=== PATIENT | male | born 1965 ===

== ENCOUNTER 2025-02-25 06:00 | Observation (INO) ==
--- NOTE | 2025-02-21 11:04 | Anesthesiology Consultation ---
Date of Service February 21, 2025 Assessment & Plan (1) Encounter for pre-operative examination: - check CBC with diff and CMP STAT am DOS, fluid orders to assigned anesthesiologist review of CMP DOS. - 6 beers daily. - pulmonology office visit 01/21/25 [place]: "...COPD (chronic obstructive pulmonary disease) with emphysema: Very severe COPD, Gold stage E with multiple exacerbations. 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 If this is present then he may benefit from home NIV...Nocturnal hypoxemia due to emphysema...currently on a device (Airvo 3) which is essentially a high flow cannula that he uses at night. Requires 2 L of oxygen...significant debility and dyspnea on exertion related to his severe lung disease...multiple subcentimeter pulmonary nodules. They have been followed with yearly CT scans...high risk for malignancy...Tracheal nodule...There is what appeared to be a mucous plug within the trachea above the stephen just below the aortic arch that has been present since June 2023 however appears to be growing in size. Do not see other mucous plugging throughout the airways. 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 Chart Review Chart Review: Acceptable Risk for Surgery and Patient NOT seen in Pre Admission Testing History Surgery Operation Date: 02/25/25 07:30 Proposed Procedures p Bronchoscopy - Tracey Chand MD Height/Weight Height: 5 ft 10 in Weight: 84.368 kg Allergies Allergy/AdvReac Type Severity Reaction Status Date / Time ciprofloxacin [From Cipro] Allergy Mild Back Pain Verified 02/17/25 12:34 levofloxacin Allergy Mild Back Pain Verified 02/17/25 12:34 metronidazole [From Flagyl] Allergy Mild Back Pain Verified 02/17/25 12:34 Medications Home Medications Medication Instructions Recorded Confirmed Last Taken albuterol sulfate 90 mcg/actuation 2 inh inhalation Q6H PRN Wheezing 01/19/25 02/17/25 Unknown breath activated powder inhaler cholecalciferol (vitamin D3) 125 125 mcg PO DAILY 01/19/25 02/17/25 Unknown mcg (5,000 unit) capsule famotidine 20 mg tablet 20 mg PO BID 01/19/25 02/17/25 Unknown lisinopril 20 mg tablet 20 mg PO PM 01/19/25 02/17/25 Unknown magnesium chloride 64 mg 64 mg PO PM 01/19/25 02/17/25 Unknown (magnesium chloride) tablet,delayed release pantoprazole 40 mg tablet,delayed 20 mg PO QAM 01/19/25 02/17/25 Unknown release azithromycin 500 mg tablet See Rx Instructions PO .COMPLEX #3 02/04/25 02/17/25 Unknown tabs aspirin 81 mg tablet,delayed 81 mg PO PM 02/17/25 02/17/25 Unknown release roflumilast 250 mcg tablet 250 mcg PO HS 02/17/25 02/17/25 Unknown (Daliresp) zinc acetate 50 mg (zinc) capsule 50 mg PO PM 02/17/25 02/17/25 Unknown ipratropium 0.5 mg-albuterol 3 mg 3 ml inhalation QID #180 mL 02/21/25 Unknown (2.5 mg base)/3 mL nebulization soln umeclidinium 62.5 mcg-vilanterol 1 inh inhalation PM #60 ea 02/21/25 Unknown 25 mcg/actuation powdr for inhalation (Anoro Ellipta) Past Medical History Medical History (Updated 02/21/25 @ 11:00 by Gladis Farr PA-C) Arthritis Asthma Atrial fibrillation was prescribed meds, does not take any of them, had adverse reactions, was seeing [facility], asking for referral from pcp to see [place] cards next week > Carpal tunnel syndrome bilat COPD (chronic obstructive pulmonary disease) uses Aero 3 chest machine at HS that is used with the 02 UMANZOR (dyspnea on exertion) GERD (gastroesophageal reflux disease) History of COVID-2023 History of kidney stones HTN (hypertension) Multiple pulmonary nodules Nocturnal hypoxemia due to emphysema 2 LPM at HS Prediabetes no meds Tracheal nodule Past Surgical History Surgical History History of bowel resection for colon perf History of colonoscopy History of lithotripsy History of tonsillectomy History of tooth extraction Hx of hernia repair S/P correction of deviated nasal septum Social History Smoking Status: Former smoker Do You Dip or Chew Tobacco: No Smoking End Date: jan 2023 Hx Alcohol Use: Yes Alcohol type: beer alcohol intake frequency: 3 or more drinks per day Alcohol Intake Frequency Comment: 6 beers per day Hx Substance Use: No substance use type: does not use Testing Electrocardiogram Date: 01/21/25 NSR, rate 82 bpm Chest X-Ray Date: 01/21/25 Left lower lung small area of ill-defined opacity which may represent atelectasis or infection Echocardiogram Date: 10/09/23 EF 60% No obvious RWMA Technically difficult study Other Testing Thorax CT 11/01/24 No acute abnormality in the chest Stable bilateral pulmonary nodules Moderate emphysema Pronounced hepatic steatosis
[2025-02-25 06:21] LABS: Hematocrit (blood only) 41.1 % (42.0-52.0); Hemoglobin 14.1 g/dl (14.0-18.0); Immature Granulocytes # (auto) 0.02 K/uL (0.01-0.20); Immature Granulocytes % (auto) 0.4 %; Mean Corpuscular Hemoglobin 29.0 pg (25.0-34.0); Mean Corpuscular Volume 84.4 fL (80.0-100.0); Platelet Count 284 K/uL (130-400); RDW Standard Deviation 38.8 fL (36.4-46.3); Red Blood Count 4.87 M/uL (4.70-6.10); White Blood Count 5.37 K/ul (4.8-10.8)
[2025-02-25] MEDS: LACTATED RINGER'S 1,000 ML IV SCH (06:35)
[2025-02-25 06:44] LABS: Alanine Aminotransferase 51.0 U/L (7-52); Albumin Globulin Ratio 1.4 (0.9-2); Albumin Level 4.3 gm/dl (3.4-5.0); Alkaline Phosphatase 97.0 U/L (34-104); Anion Gap 11.0 (3-11); Bilirubin,Total 0.3 mg/dl (0.2-1.0); Blood Urea Nitrogen 6.0 mg/dl (6-23); Calcium 9.5 mg/dl (8.6-10.3); Carbon Dioxide 25.0 mmol/L (21-32); Chloride 99.0 mmol/L (98-107); Creatinine Clr Calc Pharmacy 119.0 ml/min; Globulin 3.1 gm/dl (2.5-4.0); Glucose 110.0 mg/dl (70-99(Fasting)); Potassium 4.1 mmol/L (3.5-5.1); Sodium 135.0 mmol/L (136-145); Total Protein 7.4 gm/dl (6.0-8.3)
[2025-02-25] MEDS ORDERED: ATROPINE SULFATE 0.1 MG/ML 10ML SYR IV PRN ×2 (06:57)
[2025-02-25] MEDS ORDERED: ONDANSETRON INJ 2 MG/ML 2 ML VIAL IV PRN ×2 (06:57→10:41)
[2025-02-25] MEDS ORDERED: LIDOCAINE 2% 2 ML VIAL/AMP(20MG/ML) INFIL ONE (06:58)
[2025-02-25] MEDS ORDERED: PROPOFOL IV EMULSION 10 MG/ML 20 ML VIAL IV ONE (06:58)
[2025-02-25] MEDS ORDERED: MIDAZOLAM HCL 1 MG/ML 2ML VIAL ONE (06:58)
[2025-02-25] MEDS ORDERED: LARYING-O-JET KIT (LTA) ONE (06:58)
[2025-02-25] MEDS ORDERED: DexMEDEtomidine HCL IV 100 MCG/ML VIAL IV ONE (06:58)
[2025-02-25] MEDS ORDERED: ROCURONIUM BROMIDE 10 MG/ML 5 ML VIAL IV ONE (06:58)
[2025-02-25] MEDS ORDERED: DEXAMETHASONE SOD INJ 4 MG/ML VIAL ONE (06:58)
[2025-02-25] MEDS ORDERED: ONDANSETRON INJ 2 MG/ML 2 ML VIAL ONE (06:58)
[2025-02-25] MEDS: ALBUT/IPRATROP 3MG/0.5MG NEB 3 ML VIAL NEB STA ×2 (07:01→09:17)
[2025-02-25] MEDS ORDERED: ALBUTEROL HFA 8 GM INHALER INH ONE (07:06)
[2025-02-25] MEDS ORDERED: KETAMINE HCL 10MG/ML SYR ONE (07:06)
[2025-02-25] MEDS ORDERED: GLYCOPYRROLATE 0.2 MG/ML VIAL ONE (07:09)
--- NOTE | 2025-02-25 07:35 | History & Physical Report ---
Date of Service February 25, 2025 Assessment & Plan (1) Tracheal nodule: Plan: Will precede with bronchoscopy with biopsies of the trachea lesion with forceps. Will also do BAL and airway exam. History of Present Illness Primary Care Provider: Leny Fernandez CNP Patient si a 59 y/o M, history of tobacco use and COPD Gold E with emphysema and pulmonary nodulues. Here today for abnormal CT imgaing with lesion in the trachea above the stephen. CT imaging that is available dating back to June 2023. There is what appeared to be a mucous plug within the trachea above the stephen just below the aortic arch that has been present since June 2023 however appears to be growing in size. Do not see other mucous plugging throughout the airways. This is unlikely to be a mucous plug as it is in the same location since June 2023 and appears to be growing in size. Patient is high risk for malignancy given his tobacco use history, this could represent a squamous cell. I discussed possible flexible bronchoscopy to evaluate the airways and obtain biopsies if a lesion was present. The patient is agreeable to bronchoscopy with biopsies and BAL. Feeling well today. His friend Sallie is with him today. He is planning to follow up in clinic at end of February. Allergies Allergy/AdvReac Type Severity Reaction Status Date / Time ciprofloxacin [From Cipro] Allergy Mild Back Pain Verified 02/25/25 06:12 levofloxacin Allergy Mild Back Pain Verified 02/25/25 06:12 metronidazole [From Flagyl] Allergy Mild Back Pain Verified 02/25/25 06:12 Home Medications Medication Instructions Recorded Confirmed Type albuterol sulfate 90 mcg/actuation 2 inh inhalation Q6H PRN Wheezing 01/19/25 02/25/25 History breath activated powder inhaler cholecalciferol (vitamin D3) 125 125 mcg PO DAILY 01/19/25 02/25/25 History mcg (5,000 unit) capsule famotidine 20 mg tablet 20 mg PO BID 01/19/25 02/25/25 History lisinopril 20 mg tablet 20 mg PO PM 01/19/25 02/25/25 History magnesium chloride 64 mg 64 mg PO PM 01/19/25 02/25/25 History (magnesium chloride) tablet,delayed release pantoprazole 40 mg tablet,delayed 20 mg PO QAM 01/19/25 02/25/25 History release azithromycin 500 mg tablet See Rx Instructions PO .COMPLEX #3 02/04/25 02/25/25 Rx tabs aspirin 81 mg tablet,delayed 81 mg PO PM 02/17/25 02/25/25 History release roflumilast 250 mcg tablet 250 mcg PO HS 02/17/25 02/25/25 History (Daliresp) zinc acetate 50 mg (zinc) capsule 50 mg PO PM 02/17/25 02/25/25 History ipratropium 0.5 mg-albuterol 3 mg 3 ml inhalation QID #180 mL 02/21/25 02/25/25 Rx (2.5 mg base)/3 mL nebulization soln umeclidinium 62.5 mcg-vilanterol 1 inh inhalation PM #60 ea 02/21/25 02/25/25 Rx 25 mcg/actuation powdr for inhalation (Anoro Ellipta) Past Med/Surg History Problem List Encounter for pre-operative examination Multiple pulmonary nodules Nocturnal hypoxemia due to emphysema UMANZOR (dyspnea on exertion) 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 Medical History Arthritis Asthma Atrial fibrillation was prescribed meds, does not take any of them, had adverse reactions, was seeing [facility], asking for referral from pcp to see [place] cards next week > Carpal tunnel syndrome bilat COPD (chronic obstructive pulmonary disease) uses Aero 3 chest machine at HS that is used with the 02 UMANZOR (dyspnea on exertion) GERD (gastroesophageal reflux disease) History of COVID-2023 History of kidney stones HTN (hypertension) Multiple pulmonary nodules Nocturnal hypoxemia due to emphysema 2 LPM at HS Prediabetes no meds Tracheal nodule Surgical History History of bowel resection for colon perf History of colonoscopy History of lithotripsy History of tonsillectomy History of tooth extraction Hx of hernia repair S/P correction of deviated nasal septum Social History Smoking Status: Former smoker Tobacco Type: Cigarettes Age Started Using Tobacco: 23; Age Quit Using Tobacco: 57; packs per day: 1.5; Smoking End Date: jan 2023; Second Hand Exposure: No; Do You Dip or Chew Tobacco: No; Tobacco Cessation Education Requested by Patient: No Hx Alcohol Use: Yes Alcohol type: beer Hx Substance Use: No Preferred Language: Sammarinese Communication Ability: Effective Internet Consultant Required: No Beliefs That Will Affect Care: None Current Living Situation: Family Other Information That Helps Us Care for You: No Feels Safe at Home: Yes Safety Concerns: Feels Safe At This Time Assistive Devices: Denture - Upper, Denture - Lower, Glasses and Oxygen - at Night Review of Systems Chronic cough UMANZOR NO hemoptysis Physical Exam Physical Exam: Awake and alert. On room air, non tachypneic Sinus rhythm No extremity swelling Results & Data Vital Signs (Past 12 Hours) Vital Signs Temp Pulse Resp BP Pulse Ox O2 Del Method 02/25/25 07:01 103 H 16 94 Room Air 02/25/25 06:20 Room Air 02/25/25 06:09 36.7 C 86 20 130/89 96 Room Air
[2025-02-25] MEDS ORDERED: PHENYLEPHRINE 100MCG/ML 5ML SYR ONE ×2 (07:57)
--- NOTE | 2025-02-25 08:23 | Procedure Note ---
Procedure Note: Bronchoscopy Procedure PREOPERATIVE DIAGNOSIS: Abnormal CT, possible endotracheal lesion lesion POSTOPERATIVE DIAGNOSIS: Chronic bronchitis, thick mucoid secretions. PROCEDURE PERFORMED: Flexible fiberoptic bronchoscopy with BAL COMPLICATIONS: None. INDICATION: Abnormal CT scan, questionable endotracheal lesion present for at least 18 months PROCEDURE: After obtaining an informed consent, the patient was brought to the operating room. ANESTHESIA: General anesthesia with anesthesiology present. There was normal vocal cord motion without masses or lesions. Additional topical anesthesia with 1% lidocaine was applied to the trachea and stephen. The trachea was examined thoroughly. There were white thick secretions that were suctioned clear. Trachea was abnormally wide. The posterior membrane in the middle third of the trachea tends to collapse with respirations. Mucosa was friable. I did not appreciate any endotracheal lesions or significant mucosal abnormalities warranting biopsies. The stephen was sharp. Hyperemic mucosa that was friable. No lesions within the airway. The bronchoscope was advanced into the left mainstem and advanced to examine the airways including the left upper lobe, lingula and left lower lobe. Airways were patent. There were white mucoid secretions present that were suctioned clear. Mucosa was friable. No endobronchial lesions. No and extrinsic impression. The bronchoscope was retracted back to the stephen and advanced into the right mainstem, the right upper lobe, right middle lobe and right lower lobe were examined. Mucosa was friable throughout the airways with oozing after even suctioning. There were no endobronchial lesions. Normal airway anatomy was appreciated. No extrinsic compression. The bronchoscope was wedged into the right middle lobe, BAL was performed and sent for microbiology. The bronchoscope was slowly retracted again examining the airways while exiting the trachea. Again no evidence of endotracheal lesions appreciated. No biopsies were performed. Bronchoscope was retracted and procedure was terminated. Estimated blood loss: Minimal Complications: None Recommendations: Follow-up micro. Continue with medical therapy for chronic bronchitis/COPD. Will follow-up in clinic. [facility] [place] Procedure Codes (Charges) Pulmonary/Thoracic Procedure 1: Pulmonary and Thoracic: 97135 Dx bronchoscopy/BAL
[2025-02-25] MEDS: ALBUT/IPRATROP 3MG/0.5MG NEB 3 ML VIAL ONE (09:16)
[2025-02-25] MEDS: KETOROLAC 30 MG/ML VIAL ONE (09:16)
[2025-02-25] MEDS: KETOROLAC TROMETHAMINE 15 MG/ML VIAL IV ONE (09:17)
--- NOTE | 2025-02-25 10:08 | Anesthesiology Progress Note ---
Date of Service February 25, 2025 Anesthesia Post Procedure Vital Signs Vital Signs: Temp Pulse Pulse Resp BP Pulse Ox O2 Del Method 02/25/25 09:50 99 H 18 118/64 90 Nasal Cannula 02/25/25 09:40 100 H 12 116/65 89 L Room Air 02/25/25 09:30 105 H 21 106/69 88 L Room Air 02/25/25 09:20 103 H 22 97/61 L 91 Oxymask 02/25/25 09:16 102 H 18 92 Oxymask 02/25/25 09:10 99 H 17 95/78 L 91 Oxymask 02/25/25 09:00 36.3 C L 101 H 22 102/55 L 89 L Oxymask 02/25/25 08:50 101 H 20 102/53 L 90 Oxymask 02/25/25 08:40 103 H 20 84/54 L 91 Oxymask 02/25/25 08:30 109 H 18 92/59 L 92 Oxymask 02/25/25 08:28 Mechanical Vent 02/25/25 08:23 36.1 C L 105 H 22 91/57 L 92 Oxymask 02/25/25 07:01 103 H 16 94 Room Air 02/25/25 06:20 Room Air 02/25/25 06:09 36.7 C 86 20 130/89 96 Room Air O2 Flow Rate 02/25/25 09:50 2 02/25/25 09:40 02/25/25 09:30 02/25/25 09:20 3 02/25/25 09:16 2 02/25/25 09:10 3 02/25/25 09:00 3 02/25/25 08:50 4 02/25/25 08:40 5 02/25/25 08:30 6 02/25/25 08:28 02/25/25 08:23 6 02/25/25 07:01 02/25/25 06:20 02/25/25 06:09 Pain Intensity Throat: Pain Intensity: 5 Transfer of Care Handoff Completed per policy Notes Mental Status: alert / awake / arousable Patient Amnestic to Procedure: Yes Nausea / Vomiting: adequately controlled Pain: adequately controlled Airway Patency, RR, SpO2: see Notes below BP & HR: stable & adequate Hydration State: stable & adequate Anesthetic Complications: no major complications apparent and Pt Satisfied with anesthetic care Notes: Attempted to wean oxygen however patient O2 sats consistently in high 80s and often dipped to low-mid 80s. gave duoneb treatment and performed IS with some improvement of dyspnea but ultimately decision made to admit for observation. CXR ordered
--- NOTE | 2025-02-25 10:18 | XRay Report ---
XR chest 1V portable CLINICAL HISTORY: Hypoxia COMPARISON STUDY: 01/21/2025 FINDINGS: Heart size and pulmonary vasculature are normal. Lungs are hyperexpanded. No consolidation or pleural effusion. No pneumothorax. IMPRESSION: Hyperexpanded lungs with no pneumonia seen. ACT 112: Negative or not required by law. Electronically signed by: Robin Collins M.D. 02/25/2025 10:16 AM
--- NOTE | 2025-02-25 10:32 | History & Physical Report ---
Date of Service February 25, 2025 Assessment & Plan (1) Acute and chronic respiratory failure: (2) COPD (chronic obstructive pulmonary disease) with emphysema: (3) Prediabetes: (4) Alcohol use disorder: Plan This patient is a 59-year-old male with a history of severe COPD, chronic r espiratory failure with hypoxemia-wears 2 LNC O2 at bedtime, alcohol use disorder, prediabetes,?Paroxysmal atrial fibrillation versus heart palpitations, HTN, HLD, kidney stones, GERD/gastritis, who presents for admission after having a bronchoscopy today for possible tracheal nodule. No nodule was found and he had bronchial washings. In the PACU, he had persistent hypoxemia requiring 2 to 3 L nasal cannula. He denies recent fevers or chills, just finished a course of azithromycin as an outpatient. Denies leg swelling, any worsening of his chronic shortness of breath/dyspnea on exertion, no abdominal distention or weight gain. He will be admitted for acute on chronic respiratory failure with hypoxemia. #Acute on chronic respiratory failure with hypoxemia/COPD-likely secondary to COPD exacerbation, severe emphysema. Wears 2 LNC O2 at bedtime at home chronically. CXR here without significant acute findings. No history of heart failure and most recent echo as per review of records with preserved EF from 2023. No evidence of volume overload on exam or on chest x-ray - Admit to PCU for telemetry monitoring - Give Lasix 20 mg IV x 1 as per pulmonology recommendations -Check BNP - Continue supplemental O2 and wean off as able-Will need to step walk test prior to discharge - Consult pulmonology - Give Solu-Medrol 125 mg IV x 1 now then prednisone 40 mg p.o. daily x 4 more days - No antibiotics needed at this time, continue home Roflumilast -Give DuoNebs 4 times daily, continue maintenance inhalers #Alcohol use disorder-drinks 6-8 beers per day and does get tremors when he misses 1 day of drinking. - Encouraged alcohol cessation - AWSS protocol, IV Ativan as needed for higher scores - Start thiamine, folic acid, multivitamin #Prediabetes-most recent HgbA1c he reports a 6.0% - With being on steroids, will order NovoLog sliding scale and Accu-Cheks - Check HgbA1c in the morning #Heart palpitations/HTN/HLD-no definite history of paroxysmal atrial fibrillation as noted in the chart. Follows with cardiology for palpitations. Reports tried metoprolol and worsened his COPD - Monitor on telemetry for arrhythmias - Continue home lisinopril for hypertension - He has been intolerant of statins in the past as per PCP records #GERD/history of gastritis-no acute issues - Continue Protonix, famotidine - Encouraged alcohol cessation DVT prophylaxis-Lovenox SQ, SCDs Disposition-admit to PCU History of Present Illness Chief Complaint: Hypoxemia Primary Care Provider: Leny Fernandez, SHERRELL This patient is a 59-year-old male with a history of severe COPD, chronic respiratory failure with hypoxemia-wears 2 LNC O2 at bedtime, alcohol use disorder, prediabetes,?Paroxysmal atrial fibrillation versus heart palpitations, HTN, HLD, kidney stones, GERD/gastritis, who presents for admission after having a bronchoscopy today for possible tracheal nodule. No nodule was found and he had bronchial washings. In the PACU, he had persistent hypoxemia requiring 2 to 3 L nasal cannula. He denies recent fevers or chills, just finished a course of azithromycin as an outpatient. Denies leg swelling, any worsening of his chronic shortness of breath/dyspnea on exertion, no abdominal distention or weight gain. He will be admitted for acute on chronic respiratory failure with hypoxemia. I discussed his care with his motel maid on the day of admission. Allergies Allergy/AdvReac Type Severity Reaction Status Date / Time ciprofloxacin [From Cipro] Allergy Mild Back Pain Verified 02/25/25 06:12 levofloxacin Allergy Mild Back Pain Verified 02/25/25 06:12 metronidazole [From Flagyl] Allergy Mild Back Pain Verified 02/25/25 06:12 Home Medications Medication Instructions Recorded Confirmed Type albuterol sulfate 90 mcg/actuation 2 inh inhalation Q6H PRN Wheezing 01/19/25 02/25/25 History breath activated powder inhaler cholecalciferol (vitamin D3) 125 125 mcg PO DAILY 01/19/25 02/25/25 History mcg (5,000 unit) capsule famotidine 20 mg tablet 20 mg PO BID 01/19/25 02/25/25 History lisinopril 20 mg tablet 20 mg PO PM 01/19/25 02/25/25 History magnesium chloride 64 mg 64 mg PO PM 01/19/25 02/25/25 History (magnesium chloride) tablet,delayed release pantoprazole 40 mg tablet,delayed 20 mg PO QAM 01/19/25 02/25/25 History release aspirin 81 mg tablet,delayed 81 mg PO PM 02/17/25 02/25/25 History release roflumilast 250 mcg tablet 250 mcg PO HS 02/17/25 02/25/25 History (Daliresp) zinc acetate 50 mg (zinc) capsule 50 mg PO PM 02/17/25 02/25/25 History ipratropium 0.5 mg-albuterol 3 mg 3 ml inhalation QID #180 mL 02/21/25 02/25/25 Rx (2.5 mg base)/3 mL nebulization soln umeclidinium 62.5 mcg-vilanterol 1 inh inhalation PM #60 ea 02/21/25 02/25/25 Rx 25 mcg/actuation powdr for inhalation (Anoro Ellipta) Past Med/Surg History Problem List (Updated 02/26/25 @ 08:34 by Dora Nesbitt MD) Alcohol use disorder Acute and chronic respiratory failure Encounter for pre-operative examination Multiple pulmonary nodules Nocturnal hypoxemia due to emphysema UMANZOR (dyspnea on exertion) 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 Medical History History of COVID-19 2023 Carpal tunnel syndrome bilat Arthritis History of kidney stones Asthma Prediabetes no meds GERD (gastroesophageal reflux disease) HTN (hypertension) Atrial fibrillation was prescribed meds, does not take any of them, had adverse reactions, was seeing [facility], asking for referral from pcp to see [place] cards next week > Nocturnal hypoxemia due to emphysema 2 LPM at HS Multiple pulmonary nodules UMANZOR (dyspnea on exertion) Tracheal nodule COPD (chronic obstructive pulmonary disease) uses Aero 3 chest machine at HS that is used with the 02 Surgical History History of lithotripsy History of colonoscopy Hx of hernia repair History of bowel resection for colon perf History of tooth extraction S/P correction of deviated nasal septum History of tonsillectomy Family History (Updated 02/26/25 @ 08:31 by Dora Nesbitt MD) Other Diabetes Social History (Updated 02/26/25 @ 08:31 by Dora Nesbitt MD) Smoking Status: Former smoker Tobacco Type: Cigarettes Age Started Using Tobacco: 23; Age Quit Using Tobacco: 57; packs per day: 1.5; Second Hand Exposure: No; Do You Dip or Chew Tobacco: No; Hx Alcohol Use: Yes Alcohol type: beer Alcohol Intake Frequency: 4 or More x per/Week Alcohol Intake Frequency Comment: 6-8 beers daily Hx Substance Use: No Preferred Language: Georgian Communication Ability: Effective Zinc Skimmer Required: No Beliefs That Will Affect Care: None Current Living Situation: Spouse and Family Feels Safe at Home: Yes Assistive Devices: Denture - Upper, Glasses and Oxygen - at Night Review of Systems Review of Systems: All systems reviewed & are unremarkable except as noted in HPI & below Physical Exam Constitutional: WD/WN, vitals as above Eyes: PERRL, conjunctivae normal, anicteric sclerae ENMT: external ear and nose normal, oropharynx normal Neck: trachea midline, no thyromegaly Respiratory: normal respiratory effort; no cough Auscultation: + diminished lung sounds (Throughout); no crackles, no rhonchi and no wheezes Cardiovascular: RRR, no murmur, no edema Chest (Breasts): Chest: normal inspection of chest Gastrointestinal (Abdomen): normal bowel sounds, soft, nontender, no hepatosplenomegaly Musculoskeletal: Extremities: extremities normal to inspection; no cyanosis and no clubbing Skin: no rashes, warm and dry Neurologic: moves all extremities and awake; no focal motor deficits Psychiatric: A+Ox3, euthymic affect Lymphatic: no lymphedema Results & Data Results & Data Vital Signs (Past 12 Hours) Vital Signs Temp Pulse Pulse Resp BP Pulse Ox O2 Del Method 02/25/25 10:20 101 H 22 115/77 90 Nasal Cannula 02/25/25 10:10 101 H 21 107/71 90 Nasal Cannula 02/25/25 10:00 99 H 18 98/66 L 90 Nasal Cannula 02/25/25 09:50 99 H 18 118/64 90 Nasal Cannula 02/25/25 09:40 100 H 12 116/65 89 L Room Air 02/25/25 09:30 105 H 21 106/69 88 L Room Air 02/25/25 09:20 103 H 22 97/61 L 91 Oxymask 02/25/25 09:16 102 H 18 92 Oxymask 02/25/25 09:10 99 H 17 95/78 L 91 Oxymask 02/25/25 09:00 36.3 C L 101 H 22 102/55 L 89 L Oxymask 02/25/25 08:50 101 H 20 102/53 L 90 Oxymask 02/25/25 08:40 103 H 20 84/54 L 91 Oxymask 02/25/25 08:30 109 H 18 92/59 L 92 Oxymask 02/25/25 08:28 Mechanical Vent 02/25/25 08:23 36.1 C L 105 H 22 91/57 L 92 Oxymask 02/25/25 07:01 103 H 16 94 Room Air 02/25/25 06:20 Room Air 02/25/25 06:09 36.7 C 86 20 130/89 96 Room Air O2 Flow Rate 02/25/25 10:20 2 02/25/25 10:10 2 02/25/25 10:00 2 02/25/25 09:50 2 02/25/25 09:40 02/25/25 09:30 02/25/25 09:20 3 02/25/25 09:16 2 02/25/25 09:10 3 02/25/25 09:00 3 02/25/25 08:50 4 02/25/25 08:40 5 02/25/25 08:30 6 02/25/25 08:28 02/25/25 08:23 6 02/25/25 07:01 02/25/25 06:20 02/25/25 06:09 Laboratory Results CBC, BMP, LFTs reviewed Diagnostic Findings CXR reviewed Code Status & VTE Plan Code Status Full code VTE Prophylaxis Plan VTE Prophylaxis will be ordered: Yes PG Care Time/CCT Total # of Minutes Spent Total Time Spent with Patient: Total time spent is greater than 50% in coordination of care (as documented) at patient's floor/unit and/or counseling patient: Coding Level of Care Code 53208 INT INP/OBS CARE 3/75MIN Diagnoses Acute and chronic respiratory failure J96.20 COPD (chronic obstructive pulmonary disease) with emphysema J43.9 Prediabetes R73.03 Alcohol use disorder F10.90
[2025-02-25] MEDS ORDERED: POLYETHYLENE (MIRALAX) 17 GM PACK PO PRN (10:41)
[2025-02-25] MEDS: FUROSEMIDE INJ 20 MG/2 ML VIAL IV ONE (11:35)
[2025-02-25] MEDS: ACETAMINOPHEN 325 MG TAB PO PRN (12:33)
[2025-02-25] MEDS: LIDOCAINE 4% INH SOLN 4 ML BTL INH ONE (12:55)
[2025-02-25] MEDS: EPINEPHrine INJ 1 MG/ML AMP INSTIL ONE (12:55)
[2025-02-25] MEDS: TRANEXAMIC ACID 100 MG/ML 10 ML VIAL INSTIL ONE (12:55)
[2025-02-25] MEDS: ALBUT/IPRATROP 3MG/0.5MG NEB 3 ML VIAL INH SCH ×2 (13:46→20:19)
[2025-02-25] MEDS: ENOXAPARIN INJ 40 MG/0.4 ML SYR SQ SCH (13:57)
[2025-02-25] MEDS ORDERED: LORazepam Inj 2 MG in SYRINGE 1 ML IV PRN (14:54)
[2025-02-25] MEDS ORDERED: LORazepam Inj 1 MG in SYRINGE 0.5 ML IV PRN (14:54)
[2025-02-25] MEDS ORDERED: GLUCAGON FOR INJ 1 MG VIAL SQ PRN (14:54)
[2025-02-25] MEDS ORDERED: GLUCOSE 40% GEL 15 GM TUBE PO PRN (14:54)
[2025-02-25] MEDS ORDERED: GLUCOSE 10 TAB/TUBE PO PRN (14:54)
[2025-02-25] MEDS ORDERED: LORazepam Inj 3 MG in SYRINGE 1.5 ML IV PRN (14:54)
[2025-02-25] MEDS ORDERED: CARBOHYDRATES FOR HYPOGLYCEMIA PO PRN (14:54)
[2025-02-25] MEDS ORDERED: DEXTROSE 50% 50 ML SYRINGE IV PRN (14:54)
[2025-02-25] MEDS: FOLIC ACID 1 MG TAB PO SCH (15:58)
[2025-02-25] MEDS: THIAMINE HCL 100 MG TAB PO SCH (15:58)
[2025-02-25] MEDS ORDERED: Nursing to Pharmacy Communication SCH (16:15)
[2025-02-25] MEDS: INSULIN ASPART PER UNIT CHARGE SC SCH (16:47)
[2025-02-25] MEDS: BUTALBITAL/ACETAMIN/CAFFEINE TAB PO STA (19:47)
[2025-02-25] MEDS: MAGNESIUM CHLORIDE W/CALCIUM 64MG DELAYED REL TAB PO SCH (20:00)
[2025-02-25] MEDS: ROFLUMILAST 500 MCG TAB PO SCH (20:00)
[2025-02-25] MEDS: UMECLIDINIUM/VILANTEROL 62.5/25MCG 7 PUFFS/INHALER INH SCH (20:01)
[2025-02-25] MEDS: ZINC SULFATE 220 MG CAPSULE PO SCH (20:01)
[2025-02-25] MEDS: ASPIRIN 81 MG ECTAB PO SCH (20:01)
[2025-02-25] MEDS: FAMOTIDINE 20 MG TAB PO SCH (21:41)
[2025-02-25] MEDS: MELATONIN 3 MG TAB PO PRN (21:41)
[2025-02-26 03:59] VITALS: TEMP 97.5
[2025-02-26 07:38] LABS: Hemoglobin A1C 6.4 % (4.5-5.6)
[2025-02-26] MEDS: predniSONE 20 MG TAB PO SCH (08:31)
[2025-02-26] MEDS: MULTIVITAMIN TAB PO SCH (08:32)
[2025-02-26] MEDS: CHOLECALCIFEROL 125 MCG (5,000 UNITS) TAB PO SCH (08:32)
[2025-02-26] MEDS: IBUPROFEN 600 MG TAB PO PRN (08:41)
[2025-02-26 08:47] LABS: Alanine Aminotransferase 42.0 U/L (7-52); Albumin Globulin Ratio 1.4 (0.9-2); Albumin Level 4.1 gm/dl (3.4-5.0); Alkaline Phosphatase 74.0 U/L (34-104); Anion Gap 9.0 (3-11); Bilirubin,Total 0.4 mg/dl (0.2-1.0); Blood Urea Nitrogen 17.0 mg/dl (6-23); Calcium 9.5 mg/dl (8.6-10.3); Carbon Dioxide 26.0 mmol/L (21-32); Chloride 99.0 mmol/L (98-107); Creatinine Clr Calc Pharmacy 109.5 ml/min; Globulin 2.9 gm/dl (2.5-4.0); Glucose 132.0 mg/dl (70-99(Fasting)); Magnesium 1.7 mg/dl (1.7-2.4); Potassium 4.4 mmol/L (3.5-5.1); Sodium 134.0 mmol/L (136-145); Total Protein 7.0 gm/dl (6.0-8.3)
[2025-02-26 10:14] VITALS: O2SAT 94
--- NOTE | 2025-02-26 10:51 | Pulmonary Consultation ---
Date of Consultation February 26, 2025 Assessment & Plan (1) Acute exacerbation of COPD with asthma: Recommended short course of prednisone at a dose of 40 mg for 5 days. Recommend outpatient pulmonary rehab. Suspect the patient likely has asthma and COPD overlap syndrome. Consider outpatient initiation of Dupixent for T2 mediated process. Consider transitioning the patient to Breztri with a spacer. Patient has close follow-up scheduled with his primary printed products assembler. Consider further evaluation with IgE levels and additional allergy testing. Can also consider the addition of Ohtyuvare as an outpatient given his severe airflow obstruction and chronic symptoms. (2) Haemophilus influenzae pneumonia: Agree with treating with antibiotics. I would recommend a 5-day course of antibiotics. (3) UMANZOR (dyspnea on exertion): Secondary to poorly controlled asthma and COPD. Recommend outpatient pulmonary rehab. Consider additions of other therapies as noted above. Plan Patient is to be stable for discharge home today. Thank you for the consult. Please call with questions. I personally spent 60 minutes on the date of service in activities related to this patient's encounter, including 35 minutes of counseling with patient regarding treatment plan and 25 minutes of clinical review of lab results and documentation. I did academic counselor the patient regarding their diagnosis and treatment plan and they expressed understanding. This note was dictated using voice recognition software and may include grammatical errors, extra words, word substitutions and other inaccuracies due to errors in the voice recognition software and differences in speech patterns. History of Present Illness Reason for Consultation: Hypoxia status post bronchoscopy Attending Physician: Dora Nesbitt MD History of Present Illness 59-year-old male with a history of tobacco abuse and alcohol use disorder presenting to the hospital post bronchoscopy in the OR 02/25/2025 to evaluated tracheal abnormality noted on chest CT. Fortunately no abnormality noted on bronchoscopy, but the patient developed postprocedural hypoxemia with wheezing and shortness of breath. He is feeling significantly improved today. Right lower lobe BAL did reveal H influenza which is being treated by the hospitalist service. Patient does endorse some increased cough with sputum production. CT chest imaging revealed riggs lobar emphysema. Patient has had some mild eosinophilia on CBC previously. He is on maintenance inhalers as outlined in his medication list. He is also being trialed on Daliresp. Allergies Allergy/AdvReac Type Severity Reaction Status Date / Time ciprofloxacin [From Cipro] Allergy Mild Back Pain Verified 02/25/25 06:12 levofloxacin Allergy Mild Back Pain Verified 02/25/25 06:12 metronidazole [From Flagyl] Allergy Mild Back Pain Verified 02/25/25 06:12 Home Medications Medication Instructions Recorded Confirmed Type albuterol sulfate 90 mcg/actuation 2 inh inhalation Q6H PRN Wheezing 01/19/25 02/25/25 History breath activated powder inhaler cholecalciferol (vitamin D3) 125 125 mcg PO DAILY 01/19/25 02/25/25 History mcg (5,000 unit) capsule famotidine 20 mg tablet 20 mg PO BID 01/19/25 02/25/25 History lisinopril 20 mg tablet 20 mg PO PM 01/19/25 02/25/25 History magnesium chloride 64 mg 64 mg PO PM 01/19/25 02/25/25 History (magnesium chloride) tablet,delayed release pantoprazole 40 mg tablet,delayed 20 mg PO QAM 01/19/25 02/25/25 History release aspirin 81 mg tablet,delayed 81 mg PO PM 02/17/25 02/25/25 History release roflumilast 250 mcg tablet 250 mcg PO HS 02/17/25 02/25/25 History (Daliresp) zinc acetate 50 mg (zinc) capsule 50 mg PO PM 02/17/25 02/25/25 History ipratropium 0.5 mg-albuterol 3 mg 3 ml inhalation QID #180 mL 02/21/25 02/25/25 Rx (2.5 mg base)/3 mL nebulization soln umeclidinium 62.5 mcg-vilanterol 1 inh inhalation PM #60 ea 02/21/25 02/25/25 Rx 25 mcg/actuation powdr for inhalation (Anoro Ellipta) Patient History Medical History History of COVID-19 2023 Carpal tunnel syndrome bilat Arthritis History of kidney stones Asthma Prediabetes no meds GERD (gastroesophageal reflux disease) HTN (hypertension) Atrial fibrillation was prescribed meds, does not take any of them, had adverse reactions, was seeing [facility], asking for referral from pcp to see [place] cards next week > Nocturnal hypoxemia due to emphysema 2 LPM at HS Multiple pulmonary nodules UMANZOR (dyspnea on exertion) Tracheal nodule COPD (chronic obstructive pulmonary disease) uses Aero 3 chest machine at HS that is used with the 02 Surgical History History of lithotripsy History of colonoscopy Hx of hernia repair History of bowel resection for colon perf History of tooth extraction S/P correction of deviated nasal septum History of tonsillectomy Family History (Updated 02/26/25 @ 08:31 by Dora Nesbitt MD) Other Diabetes Social History (Updated 02/26/25 @ 08:31 by Dora Nesbitt MD) Smoking Status: Former smoker Tobacco Type: Cigarettes Age Started Using Tobacco: 23; Age Quit Using Tobacco: 57; packs per day: 1.5; Smoking End Date: jan 2023; Second Hand Exposure: No; Do You Dip or Chew Tobacco: No; Tobacco Cessation Education Requested by Patient: No Hx Alcohol Use: Yes Alcohol type: beer Alcohol Intake Frequency: 4 or More x per/Week Alcohol Intake Frequency Comment: 6-8 beers daily Hx Substance Use: No Preferred Language: Swedish Communication Ability: Effective Resort Manager Required: No Beliefs That Will Affect Care: None Current Living Situation: Spouse and Family Other Information That Helps Us Care for You: No Feels Safe at Home: Yes Safety Concerns: Feels Safe At This Time Assistive Devices: Denture - Upper, Glasses and Oxygen - at Night Review of Systems Review of Systems: All systems reviewed & are unremarkable except as noted in HPI & below Physical Exam Physical Exam: Physical examination: General: Well-appearing, well-nourished and not in acute distress. HEENT: Normocephalic, atraumatic. Extraocular movements intact. Sclera are nonicteric. No JVD appreciated. Skin: Warm and dry. No rashes appreciated. No jaundice appreciated. Cardiovascular: Heart is a regular rate and rhythm, no murmurs appreciated on my exam. No significant lower extremity edema. Lungs: Diminished bilaterally. Wheezing coughing. Prolonged expiratory phase. No crackles. On room air. Oxygen saturation is 97%. Musculoskeletal: Normal muscle mass and tone. No gross joint deformity abnor malities. No effusions appreciated. Neurologic: Awake and alert, oriented. CN II through XII are grossly intact. Speech is fluent. Nonfocal exam. Psychiatric: Appropriate cooperative during my exam. Results & Data Results & Data Vital Signs (Past 12 Hours) Vital Signs Temp Pulse Pulse Pulse Pulse Pulse Resp 02/26/25 10:10 137 H 100 H 02/26/25 10:07 114 H 20 02/26/25 08:00 112 H 22 02/26/25 08:00 02/26/25 07:40 84 02/26/25 07:40 02/26/25 07:14 94 H 18 02/26/25 03:58 36.4 C L 88 22 02/26/25 00:00 02/25/25 23:19 115 H Resp Resp BP Pulse Ox Pulse Ox Pulse Ox Pulse Ox 02/26/25 10:10 20 20 90 94 02/26/25 10:07 92 02/26/25 08:00 113/65 92 02/26/25 08:00 02/26/25 07:40 02/26/25 07:40 02/26/25 07:14 94 02/26/25 03:58 126/73 93 02/26/25 00:00 93 02/25/25 23:19 O2 Del Method O2 Del Method O2 Flow Rate O2 Flow Rate 02/26/25 10:10 02/26/25 10:07 Room Air 02/26/25 08:00 Room Air 02/26/25 08:00 Room Air 02/26/25 07:40 02/26/25 07:40 Room Air 02/26/25 07:14 Room Air 02/26/25 03:58 Nasal Cannula 2 02/26/25 00:00 Nasal Cannula 2 02/25/25 23:19 PG Care Time/CCT Total # of Minutes Spent Total Time Spent with Patient: Total time spent is greater than 50% in coordination of care (as documented) at patient's floor/unit and/or counseling patient: Coding Level of Care Code 55756 INT INP/OBS CARE 2/55MIN Diagnoses Acute exacerbation of COPD with asthma J44.1 Haemophilus influenzae pneumonia J14 UMANZOR (dyspnea on exertion) R06.09
[2025-02-26 11:23] VITALS: BP 142/81; RESP 18
--- NOTE | 2025-02-26 11:45 | Discharge Summary ---
Discharge Summary Date of Service February 26, 2025 Principal Dx & Hospital Course #1 = Principal Diagnosis (1) Acute and chronic respiratory failure: (2) COPD (chronic obstructive pulmonary disease) with emphysema: (3) Prediabetes: (4) Alcohol use disorder: Plan This patient is a 59-year-old male with a history of severe COPD, chronic respiratory failure with hypoxemia-wears 2 LNC O2 at bedtime, alcohol use disorder, prediabetes,?Paroxysmal atrial fibrillation versus heart palpitations, HTN, HLD, kidney stones, GERD/gastritis, who presents for admission after having a bronchoscopy for possible tracheal nodule. No nodule was found and he had bronchial washings. In the PACU, he had persistent hypoxemia requiring 2 to 3 L nasal cannula. He denies recent fevers or chills, just finished a course of azithromycin as an outpatient. Denies leg swelling, any worsening of his chronic shortness of breath/dyspnea on exertion, no abdominal distention or weight gain. He was admitted for acute on chronic respiratory failure with hypoxemia secondary to COPD exacerbation and haemophilus influenza beta-lactamase positive bronchitis. #Acute on chronic respiratory failure with hypoxemia/COPD exacerbation/haem ophilus influenza beta-lactamase positive bronchitis-patient with severe emphysema. Wears 2 LNC O2 at bedtime at home chronically. CXR here without significant acute findings. No history of heart failure and most recent echo as per review of records with preserved EF from 2023. No evidence of volume overload on exam or on chest x-ray. BNP was normal. He was given 1 dose of IV Lasix initially. He had no significant events on telemetry except for some sinus tachycardia. He was weaned off oxygen to room air and passed a two-step walk test prior to discharge. He was given 1 dose of IV Solu-Medrol 125 mg and then continued on prednisone daily. -Discharged home on prednisone 40 mg p.o. daily x 5-day course - Consult pulmonology appreciated -Prescribe Augmentin 875/125 mg p.o. twice daily x 7 days for haemophilus influenza-because its beta-lactamase positive, it was sent out to reference lab for susceptibility/sensitivity testing which will take approximately 3 to 5 days to return the result. In the meantime, Augmentin should suffice but the final sensitivity should be followed up on after discharge - Continue home Roflumilast - Continue home Anoro, DuoNebs as needed - Has follow-up planned with pulmonology in 2 weeks #Alcohol use disorder-drinks 6-8 beers per day and does get tremors when he misses 1 day of drinking. No evidence of alcohol withdrawal here but encouraged cessation of alcohol on discharge. - Advised patient to cut back slowly on alcohol to reduce chances of withdrawal given high intake, however he wants to try to quit "cold turkey"-gave precautions on alcohol withdrawal signs and symptoms to look out for - Start thiamine, folic acid, multivitamin and continue on discharge #Prediabetes-most recent HgbA1c he reports a 6.0% and here is 6.4% - With being on steroids, will order NovoLog sliding scale and Accu-Cheks -Follow carbohydrate diet on discharge #Heart palpitations/HTN/HLD-no definite history of paroxysmal atrial fibrillation as noted in the chart. Follows with cardiology for palpitations. Reports tried metoprolol and worsened his COPD. Here had some multifocal PACs/sinus tachycardia but no A-fib. BPs were controlled to mildly elevated - Continue home lisinopril for hypertension - He has been intolerant of statins in the past as per PCP records -Follow-up with cardiology as an outpatient #GERD/history of gastritis-no acute issues - Continue Protonix, famotidine - Encouraged alcohol cessation DVT prophylaxis-Lovenox SQ, SCDs Disposition-stable for discharge to home Notes For Next Care Provider Follow-up beta lactamase positive haemophilus influenza culture sensitivities after discharge Needs close monitoring for alcohol withdrawal as he tries to cut down or quit alcohol intake after discharge Medication Changes From Visit Added Augmentin twice daily x 7 days Added prednisone 40 mg daily x 5 days Admission HPI Per Admitting Provider This patient is a 59-year-old male with a history of severe COPD, chronic respiratory failure with hypoxemia-wears 2 LNC O2 at bedtime, alcohol use disorder, prediabetes,?Paroxysmal atrial fibrillation versus heart palpitations, HTN, HLD, kidney stones, GERD/gastritis, who presents for admission after having a bronchoscopy today for possible tracheal nodule. No nodule was found and he had bronchial washings. In the PACU, he had persistent hypoxemia requiring 2 to 3 L nasal cannula. He denies recent fevers or chills, just finished a course of azithromycin as an outpatient. Denies leg swelling, any worsening of his chronic shortness of breath/dyspnea on exertion, no abdominal distention or weight gain. He will be admitted for acute on chronic respiratory failure with hypoxemia. I discussed his care with his calibration technician on the day of admission. Discharge Exam Constitutional WD/WN, vitals as above ENMT external ear and nose normal, oropharynx normal Neck trachea midline, no thyromegaly Respiratory normal respiratory effort; no cough Auscultation: + diminished lung sounds (Throughout) and + wheezes (A few scattered wheezes); no crackles and no rhonchi Cardiovascular RRR, no murmur, no edema Chest (Breasts) Chest: normal inspection of chest Gastrointestinal (Abdomen) normal bowel sounds, soft, nontender, no hepatosplenomegaly Musculoskeletal Extremities: extremities normal to inspection; no cyanosis and no clubbing Skin no rashes, warm and dry Neurologic moves all extremities and awake; no focal motor deficits Psychiatric A+Ox3, euthymic affect Lymphatic no lymphedema Discharge Plan Discharge Items Patient Disposition: Home - Self-Care Reason For Visit: ACUTE RESPIRATORY FAILURE WITH HYPOXEMIA Discharge Diagnosis: Acute COPD exacerbation Acute bronchitis secondary to haemophilus influenza (a bacterial bronchitis) Acute on chronic respiratory failure with hypoxemia-resolved Condition on Discharge: Good Activity: Resume your previous activity Non-emergency contact: Primary Care Provider and Tunnel Worker Call non-emergency contact if: you have any medication questions and your symptoms worsen Follow-up/Referrals: Leny Fernandez CNP [Primary Care Provider] - (Follow-up in 1-2 weeks after discharge.) Diet: Carb Consistent or DM2 Addtl Attending Provider Instructions: You were admitted with low oxygen levels after having a bronchoscopy. This improved with giving you steroids. You are growing a bacteria from your lungs called haemophilus influenza that will respond to Augmentin antibiotic. Please take this twice a day for 7 days. You will also be given a 5-day course of prednisone to take 40 mg once daily. As we discussed, it will be important for you to cut down on your alcohol intake. If you decide to quit cold turkey, please be mindful of any withdrawal symptoms that could become serious. Alcohol withdrawal symptoms could involve tremors or shaking, confusion, hallucinations, high blood pressure, high heart rate, or seizures. If you notice any of the symptoms starting, it is okay to drink alcohol but try to cut down slowly on the amount of alcohol that you drink each day. Heavy alcohol use can lead to vitamin deficiencies. It is important that you take a thiamine, folic acid, and multivitamin supplement every day. These can all be purchased [id number]. You should follow up in the pulmonology clinic at the end of the month. Continue as needed inhalers, Anoro daily and Daliresp. It was a pleasure taking care of you! If you have any questions about your care before your hospital follow-up visit with your primary care provider, please call [phone] and ask to be transferred to the [facility] office. Sincerely, Dora Nesbitt M.D. Pending Studies at Discharge: Yes (Final sputum culture sensitivities) Stand-Alone Forms: My [facility] Medications and DC Order Prescriptions: New prednisone 20 mg Tablet 40 mg PO QAM Qty: 10 0RF folic acid 1 mg Tablet 1 mg PO QAM Qty: 30 0RF Rx Instructions: Awbx-dnb-yjladwt multivitamin with folic acid [Daily-Val (with folic acid)] 400 mcg Tablet 1 tab PO QAM Qty: 30 0RF Rx Instructions: Wykv-jhx-dzlynko thiamine HCl (vitamin B1) 100 mg Tablet 100 mg PO QAM Qty: 30 0RF Rx Instructions: Gpez-phr-ortcjli amoxicillin-pot clavulanate 875-125 mg tablet 1 tab PO BID Qty: 14 0RF Continued ipratropium-albuterol 0.5 mg-3 mg(2.5 mg base)/3 mL solution for nebulization 3 ml inhalation QID Qty: 180 6RF umeclidinium-vilanterol [Anoro Ellipta] 62.5-25 mcg/actuation blister with device 1 inh inhalation PM Qty: 60 6RF albuterol sulfate 90 mcg/actuation aerosol powdr breath activated 2 inh inhalation Q6H PRN (Reason: Wheezing) pantoprazole 40 mg tablet,delayed release (DR/EC) 20 mg PO QAM famotidine 20 mg tablet 20 mg PO BID magnesium chloride 64 mg tablet,delayed release (DR/EC) 64 mg PO PM lisinopril 20 mg tablet 20 mg PO PM cholecalciferol (vitamin D3) 125 mcg (5,000 unit) capsule 125 mcg PO DAILY zinc acetate 50 mg (zinc) Capsule 50 mg PO PM aspirin 81 mg Tablet,Delayed Release (Dr/Ec) 81 mg PO PM roflumilast [Daliresp] 250 mcg tablet 250 mcg PO HS Discontinued azithromycin 500 mg tablet See Rx Instructions PO .COMPLEX Qty: 3 0RF Patient Comments: finished with this on 02/08/25 Rx Instructions: For 500 mg dose pack: take 500 mg once daily for 3 days PO Discharge Orders: Discharge Order (Routine); Ordered 02/26/25 Ordered By: Dora Nesbitt Admission Data Admit Date/Time: 02/25/25 10:41 Attending Provider: Dora Nesbitt Admit Provider: Dora Nesbitt Primary Care Provider: Leny Fernandez Other Providers: Tracey Chand Hospital Stay Data Consultations 02/25/25 10:48 Consult Pulmonology Routine Procedures Performed Operation Date: 02/25/25 07:30 Actual Procedures p Bronchoscopy(Not Applicable) - Tracey Chand MD Pending Results Patient Have Any Pending Studies at Discharge: Yes (Final sputum culture sensitivities) Discharge Instructions Given to Patient (Per Discharging Provider) You were admitted with low oxygen levels after having a bronchoscopy. This improved with giving you steroids. You are growing a bacteria from your lungs called haemophilus influenza that will respond to Augmentin antibiotic. Please take this twice a day for 7 days. You will also be given a 5-day course of prednisone to take 40 mg once daily. As we discussed, it will be important for you to cut down on your alcohol intake. If you decide to quit cold turkey, please be mindful of any withdrawal symptoms that could become serious. Alcohol withdrawal symptoms could involve tremors or shaking, confusion, hallucinations, high blood pressure, high heart rate, or seizures. If you notice any of the symptoms starting, it is okay to drink alcohol but try to cut down slowly on the amount of alcohol that you drink each day. Heavy alcohol use can lead to vitamin deficiencies. It is important that you take a thiamine, folic acid, and multivitamin supplement every day. These can all be purchased [id number]. You should follow up in the pulmonology clinic at the end of the month. Continue as needed inhalers, Anoro daily and Daliresp. It was a pleasure taking care of you! If you have any questions about your care before your hospital follow-up visit with your primary care provider, please call [phone] and ask to be transferred to the [facility] office. Sincerely, Dora Nesbitt M.D. Total Time Total Time Spent Total Time Spent (In Minutes): 35 minutes Total Time Includes: Examination of the Patient, Discharge Planning, Medication Reconciliation and Communication With Other Providers (Pulmonology) Coding Level of Care Code 89306 INP/OBS DISCH >30 MIN Diagnoses Acute and chronic respiratory failure J96.20 COPD (chronic obstructive pulmonary disease) with emphysema J43.9 Prediabetes R73.03 Alcohol use disorder F10.90
[2025-02-26 11:46] VITALS: PULSE 114
== END 2025-02-26 13:12 | disposition home or self-care (01) ==
LOC: ASU 06:00 → 2E 06:00